=== PATIENT | female | born 1955 | race American Indian/Alaskan Native ===

== ENCOUNTER 2016-11-16 19:49 | Emergency (ER) | payer SELFPAY ==
[2016-11-16 21:32] LABS: Basophils % (Auto) 0.7 % (0.0-1.8); Hematocrit 28.5 % (30.3-42.9); Hemoglobin 10.2 gm/dl (10.1-14.3); Mean Corpuscular HGB Conc 36 % (30-34); Mean Corpuscular Hemoglobin 43 pg (28-32); Platelet Count 218 K/mm3 (140-440); Red Blood Count 2.35 M/mm3 (3.65-5.03); Red Cell Distribution Width 16.5 % (13.2-15.2); Reticulocyte % 3.58 % (0.78-2.58); White Blood Count 10.3 K/mm3 (4.5-11.0)
[2016-11-16 21:35] LABS: Mean Corpuscular Volume 122 fl (79-97)
[2016-11-16 21:45] LABS: Anion Gap 21 mmol/L; Blood Urea Nitrogen 12 mg/dL (7-17); Calcium 9.6 mg/dL (8.4-10.2); Carbon Dioxide 24 mmol/L (22-30); Chloride 97.2 mmol/L (98-107); Glucose 138 mg/dL (65-100); Potassium 4.2 mmol/L (3.6-5.0); Sodium 138 mmol/L (137-145)
[2016-11-16] MEDS ORDERED: D5NS 0.2% 1,000 ML IV SCH (22:00)
[2016-11-16] MEDS ORDERED: MORPHINE IV ONE (22:11)
[2016-11-16] MEDS ORDERED: ZOFRAN IV ONE (22:11)
--- NOTE | 2016-11-16 23:35 | XRay Report ---
FINAL REPORT PROCEDURE: XR CHEST 1V AP TECHNIQUE: Chest radiograph anteroposterior view. CPT 21493 HISTORY: cp COMPARISON: No prior studies are available for comparison. FINDINGS: Heart: Normal. Mediastinum/Vessels: Normal. Lungs/Pleural space: Lungs are well-expanded. There are chronic fibrotic changes. There are no acute infiltrates. There are no effusions or pneumothoraces.. Bony thorax: No acute osseous abnormality. There are degenerative changes of the glenohumeral joints. Life support devices: None. IMPRESSION: No acute cardiopulmonary abnormality.
[2016-11-17] MEDS ORDERED: DILAUDID ONE
[2016-11-17] MEDS ORDERED: DILAUDID IV ONE (00:03)
--- NOTE | 2016-11-17 00:45 | Emergency Department Report ---
HPI - General Chief Complaint: Sickle Cell Crisis Time Seen by Provider: 11/16/16 22:10 - HPI HPI: Chief complaint; I feel like I am having a sickle cell crisis This is a 60-year-old black female with history of sickle cell who resides in [facility]. Patient is down in [place] visiting and actually going back to [place] tomorrow. She is a little 2 hours prior to presentation just started having some chest discomfort upper and lower extremity pain. She describes her pain as 10 out of 10 sharp pain without radiation and no nausea no vomiting. He said the pain in her extremities worsen the pain in the chest. She said this is similar to prior sickle cell pain. She is not on chronic pain therapy. She states compliance with her medications. She denies any alleviating or exacerbating factors. She has not taking any medication at home prior to coming to the ED. She states she has twice yearly admissions for sickle cell pain. Especially when her hemoglobin is low. But most time after pain medications she is able to be discharged at home from the ER. ED Past Medical Hx - Past Medical History Previous Medical History?: Yes Hx CVA: No Hx Heart Attack/AMI: No Hx Sickle Cell Disease: Yes - Surgical History Past Surgical History?: No - Social History Smoking Status: Never Smoker Substance Use Type: None ED Review of Systems ROS: Stated complaint: SICKLE CELL CRISIS Other details as noted in HPI Comment: All other systems reviewed and negative Constitutional: no symptoms reported Cardiovascular: chest pain Musculoskeletal: myalgia Physical Exam - Physical Exam Vital Signs: Vital Signs 11/16/16 11/16/16 21:04 22:25 Temperature 99.2 F Pulse Rate 89 87 Respiratory 20 18 Rate Blood Pressure 140/75 126/74 [Left] O2 Sat by Pulse 100 96 Oximetry Physical Exam: Vital signs reviewed Gen. alert and oriented 3 in no distress Head atraumatic normocephalic Eyes PERRLA EOMI Chest regular rate and rhythm normal S1-S2 lungs clear bilaterally Abdomen soft nondistended Back no point tenderness paravertebral tenderness Neuro no focal deficit. Psych normal mood. Skin; no rashes ED Course Vital Signs 11/16/16 11/16/16 21:04 22:25 Temperature 99.2 F Pulse Rate 89 87 Respiratory 20 18 Rate Blood Pressure 140/75 126/74 [Left] O2 Sat by Pulse 100 96 Oximetry - Reevaluation(s) Reevaluation #1: 11/17/16 00:45 After pain medication her symptoms are much improved and feels ready to go home. ED Medical Decision Making - Lab Data Result diagrams: 11/16/16 21:17 11/16/16 21:17 Critical care attestation.: If time is entered above; I have spent that time in minutes in the direct care of this critically ill patient, excluding procedure time. ED Disposition Clinical Impression: Sickle cell anemia with pain Disposition: DC-01 TO HOME OR SELFCARE Is pt being admited?: No Does the pt Need Aspirin: No Condition: Stable Instructions: Sickle Cell Crisis (ED) Referrals: PRIMARY CARE, [Primary Care Provider] - 3-5 Days
[2016-11-17 01:30] VITALS: BP 122/67
== END 2016-11-17 01:30 | disposition home or self-care (01) ==
LOC: ED 19:49
DX: D57.1 Sickle-cell disease without crisis (principal); R07.89 Other chest pain; M79.605 Pain in left leg; M79.604 Pain in right leg
CPT/HCPCS: 36415; 71010; 80048; 84484; 85025; 85045; 93005; 93010; 96361; 96374; 96375; 99285; J1170; J2270; J2405